=== PATIENT | male | born 2000 | race Caucasian/White ===

== ENCOUNTER 2021-04-02 02:50 | Emergency (ER) | payer OTHER ==
[~2021-04-02] VITALS: Ht 170.2 cm; Wt 109.0 kg
[2021-04-02] MEDS ORDERED: DOXYCYCLINE HYCLATE 100MG CAPSULE PO ONE (03:30)
[2021-04-02] MEDS ORDERED: CEFTRIAXONE SODIUM 500 MG/VIAL IM ONE (03:30)
[2021-04-02] MEDS ORDERED: LIDOCAINE HCL 1% 20ML VIAL (Pyxis) INJ INFIL ONE (03:30)
[2021-04-02] MEDS ORDERED: DOXY100T2 MT (04:05)
[2021-04-02 04:06] LABS: CLARITY URINE CLEAR (CLEAR); COLOR URINE YELLOW (YELLOW); KETONES URINE TRACE (NEGATIVE); LEUKOCYTE ESTERASE URINE NEGATIVE (NEGATIVE); NITRITE URINE NEGATIVE (NEGATIVE); OCCULT BLOOD URINE NEGATIVE (NEGATIVE); PROTEIN URINE NEGATIVE (NEGATIVE); UROBILINOGEN URINE 0.2 E.U./dL (0.2-1.0)
[2021-04-02 06:43] VITALS: BP 124/59
[2021-04-04 04:08] LABS: NEISSERIA GONORRHOEAE NAA Negative (Negative)
== END 2021-04-02 05:35 | disposition home or self-care (01) ==
LOC: ER 02:50
DX: N50.812 Left testicular pain (principal); N50.811 Right testicular pain; Z20.2 Contact with and (suspected) exposure to infections with a predominantly sexual mode of transmission
CPT/HCPCS: 76870; 81003; 87491; 87591; 93976; 96372; 99284; J0696; J3490